=== PATIENT | male | born 1955 | race Caucasian/White ===

== ENCOUNTER 2017-10-21 15:31 | Emergency (ER) | payer OTHER ==
[~2017-10-21] VITALS: Ht 152.4 cm; Wt 45.8 kg
[~2017-10-21 15:31] MED LIST: ZIAC
== END 2017-10-22 13:06 ==
LOC: ER 15:31
DX: E86.0 Dehydration (principal); C41.9 Malignant neoplasm of bone and articular cartilage, unspecified; C78.7 Secondary malignant neoplasm of liver and intrahepatic bile duct; C78.02 Secondary malignant neoplasm of left lung; C78.01 Secondary malignant neoplasm of right lung